=== PATIENT | male | born 1965 | race Caucasian/White ===

== ENCOUNTER → 2017-04-21 | Outpatient (CLI) | payer OTHER ==
--- NOTE | 2017-04-21 15:43 | XR ---
EXAMINATION TYPE: XR lumbosacral spine min 4V DATE OF EXAM: 04/21/2017 CLINICAL HISTORY: Chronic low back pain with new onset radiculopathy. TECHNIQUE: Frontal, lateral, and oblique images of the lumbar spine are obtained. COMPARISON: None FINDINGS: There are 5 lumbar type vertebral bodies identified. Intervertebral disc space narrowing is seen at L2-L3, L3-L4, L4-L5, and L5-S1. Small anterior osteophytes and facet arthropathy also are seen at these levels. At least mild neural foraminal narrowing is present at L3-L4 and L4-5 bilateral ly. The lumbar spine shows satisfactory alignment without evidence of acute fracture or dislocation. Vertebral body heights and disk space heights are within normal limits. No pars interarticularis defe cts. The overlying soft tissue appears unremarkable. IMPRESSION: 1. Multilevel degenerative disc disease with at least mild bilateral neural foraminal narrowing at L3 -L4 and L4-L5. 2. No acute fracture or dislocation is seen in the lumbar spine.
== END ==
LOC: RADXRMAIN 15:20
PROVIDERS: ATTEND Physician Assistant
DX: M99.73 Connective tissue and disc stenosis of intervertebral foramina of lumbar region (principal); M51.36 Other intervertebral disc degeneration, lumbar region
CPT/HCPCS: 72110

== ENCOUNTER → 2019-10-06 | Outpatient (CLI) | payer OTHER ==
--- NOTE | 2019-10-06 10:45 | XR ---
EXAMINATION TYPE: XR lumbosacral spine min 4V DATE OF EXAM: 10/06/2019 CLINICAL HISTORY: Acute on chronic low back pain with right foot numbness TECHNIQUE: Frontal, lateral, and oblique images of the lumbar spine are obtained. COMPARISON: 04/21/2017 FINDINGS: There is a very subtle levoscoliosis of the lumbar spine. There are 5 lumbar type vertebral bodies identified. The lumbar spine shows no evidence of acute fracture. Vertebral body heights are within normal limits. Multilevel intervertebral disc space narrowing, anterior osteophytes, endplate sclerosis, facet arthropathy, and vacuum disc disease. Very minimal retrolisthesis of L2 on L3 and L 3 on L4. The oblique images demonstrate no evidence of pars interarticularis defect. The overlying soft tissue appears unremarkable. IMPRESSION: 1. No acute fracture is seen in the lumbar spine. 2. Moderate multilevel degenerative disc disease of the lumbar spine with new minimal retrolisthesis of L2 on L3 and L3 on L4, likely on a degenerative basis. 3. Very subtle levoscoliosis of the lumbar spine.
== END | disposition home or self-care (01) ==
LOC: RADXRYALE 09:07
PROVIDERS: ATTEND Physician Assistant
DX: M43.16 Spondylolisthesis, lumbar region (principal); M51.36 Other intervertebral disc degeneration, lumbar region; M41.86 Other forms of scoliosis, lumbar region
CPT/HCPCS: 72110

== ENCOUNTER 2019-10-25 08:14 | Day surgery (SDC) | payer OTHER ==
[2019-10-20 14:34] VITALS: BMI 34.2
[~2019-10-25 08:14] MED LIST: DEXAMETHASONE SOD PHOSPHATE 10 MG/ML 1 ML VIAL IV ONE; LACTATED RINGERS 1,000 ML IV SCH; LIDOCAINE 1% 20 ML VIAL (10MG/ML) FOR IV START INTRADERMA PRN; MIDAZOLAM 2 MG/2 ML VIAL IV PRN; ONDANSETRON 4 MG/2 ML VIAL IVP ONE
[2019-10-25 08:40] VITALS: TEMP 97.8
[2019-10-25] MEDS ORDERED: PROPOFOL 10 MG/ML 20 ML VIAL IV ONE (08:50)
--- NOTE | 2019-10-25 09:19 | P.PCN ---
Date of Procedure: 10/25/19 Description of Procedure: BRIEF HISTORY: 54-year-old male who presents for colonoscopy for screening for malignant neoplasm colon. No prior colonoscopies, no change in bowel habits or blood per rectum. Family history of colon cancer in his mother in her 60s. PROCEDURE PERFORMED: Colonoscopy with polypectomy. PREOPERATIVE DIAGNOSIS: Screening for malignant neoplasm of the colon, no prior colonoscopies, family history of colon cancer in his mother. ESTIMATED BLOOD LOSS: Minimal. IV sedation per Anesthesia. PROCEDURE: After informed consent was obtained, the patient, was brought into the endoscopy unit. IV sedation was administered by Anesthesia under continuous monitoring. Digital rectal examination was normal. Initially the Olympus CF-190 flexible video colonoscope was then inserted in the rectum, gradually advanced into the cecum without any difficulty. Careful examination was performed as the scope was gradually being withdrawn. Ileocecal valve and the appendiceal orifice were visualized and appeared normal. Prep was excellent. Mucosa of the cecum, asce nding colon, transverse colon, descending colon, sigmoid colon, and rectum appeared normal. 2 diminutive rectal polyps measuring 1 and 2 mm in size removed with cold forcep polypectomy. Retroflexion was performed in the rectum and no lesions were seen. The patient tolerated the procedure well. IMPRESSION: 2 diminutive rectal polyps removed with cold forcep polypectomy. Normal-appearing colon from rectum to cecum. RECOMMENDATIONS: Findings of this examination were discussed with the patient in his . Okay to resume diet. Okay to resume medications. Await pathology from polypectomi es. Would recommend repeat colonoscopy in 5 years for family history of colon cancer..
[2019-10-25 09:34] VITALS: BP 104/66; PULSE 50; RESP 16
== END 2019-10-25 09:50 | disposition home or self-care (01) ==
LOC: ORWHC2ENDO 08:14
PROVIDERS: ATTEND Internal Medicine
DX: Z12.11 Encounter for screening for malignant neoplasm of colon (principal); K62.1 Rectal polyp; E78.5 Hyperlipidemia, unspecified; I10 Essential (primary) hypertension; Z88.0 Allergy status to penicillin; Z87.891 Personal history of nicotine dependence; Z79.899 Other long term (current) drug therapy; Z87.81 Personal history of (healed) traumatic fracture; Z98.890 Other specified postprocedural states; Z86.69 Personal history of other diseases of the nervous system and sense organs; Z80.0 Family history of malignant neoplasm of digestive organs
CPT/HCPCS: 88305; 45380; J2704

== ENCOUNTER → 2020-05-11 | Outpatient (CLI) | payer OTHER ==
--- NOTE | 2020-05-11 16:26 | XR ---
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 TECHNIQUE: 3 views FINDINGS: There is a nondistended maxillary molar. Dental amalgam is present. No retained metallic debris seen in either orbit. IMPRESSION: Dental amalgam. No retained metal debris within the orbits. Clear for MRI.
== END | disposition home or self-care (01) ==
LOC: RADXRYALE 15:09
PROVIDERS: ATTEND Physician Assistant Medical
DX: H02.819 Retained foreign body in unspecified eye, unspecified eyelid (principal); Z98.811 Dental restoration status
CPT/HCPCS: 70030

== ENCOUNTER → 2020-06-08 | Outpatient (CLI) | payer OTHER ==
--- NOTE | 2020-06-08 11:09 | XR ---
EXAMINATION TYPE: XR knee complete RT DATE OF EXAM: 06/08/2020 CLINICAL HISTORY: pain TECHNIQUE: Three views of the right knee are obtained. COMPARISON: None. FINDINGS: There is no acute fracture/dislocation. The tri-compartment joint spaces appear at least moderately narrowed. Spur formation is seen. The overlying soft tissue appears unremarkable. IMPRESSION: There is no acute fracture or dislocation.ICD 10 NO FRACTURE, INITIAL EVALUATION
== END | disposition home or self-care (01) ==
LOC: RADXRMAIN 10:35
PROVIDERS: ATTEND Emergency Medicine
DX: S83.91XA Sprain of unspecified site of right knee, initial encounter (principal)

== ENCOUNTER 2021-04-02 15:47 | Observation (INO) | payer OTHER ==
[2021-04-02 16:33] LABS: Basophils # (A) 0.1 k/uL (0-0.2); Basophils % (A) 1 %; Eosinophils # (A) 0.2 k/uL (0-0.7); Eosinophils % (A) 2 %; HCT 46.3 % (39.0-53.0); HGB 15.6 gm/dL (13.0-17.5); Lymphocytes # (A) 2.8 k/uL (1.0-4.8); Lymphocytes % (A) 34 %; MCHC 33.8 g/dL (31.0-37.0); MCV 88.8 fL (80.0-100.0); Mean Platelet Volume 8.2; Monocytes # (A) 0.6 k/uL (0-1.0); Monocytes % (A) 7 %; Neutrophils # (A) 4.4 k/uL (1.3-7.7); Neutrophils % (A) 53 %; Platelet Count 189 k/uL (150-450); RBC 5.22 m/uL (4.30-5.90); RDW 13.3 % (11.5-15.5); WBC 8.3 k/uL (3.8-10.6)
[2021-04-02 16:50] LABS: INR 0.9 (<1.2); Partial Thromboplastin Time 25.2 sec (22.0-30.0); Prothrombin Time 10.1 sec (9.0-12.0)
[2021-04-02 16:53] LABS: Albumin 4.4 g/dL (3.5-5.0); Calcium 9.5 mg/dL (8.4-10.2); Magnesium 1.9 mg/dL (1.6-2.3); Potassium 3.9 mmol/L (3.5-5.1); Total Bilirubin 0.2 mg/dL (0.2-1.3); Total Protein 6.8 g/dL (6.3-8.2)
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
--- NOTE | 2021-04-02 17:15 | XR ---
EXAMINATION TYPE: XR chest 2V DATE OF EXAM: 04/02/2021 COMPARISON: NONE HISTORY: Chest pain TECHNIQUE: 2 views FINDINGS: Heart and mediastinum are normal. Lungs are clear. Diaphragm is normal. Bony thorax is inta ct. IMPRESSION: Normal chest.
[2021-04-02] MEDS ORDERED: NITROGLYCERIN SL TABS 0.4 MG TAB SUBLINGUAL PRN (17:30)
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
[2021-04-03 08:22] VITALS: RESP 17
[2021-04-03] MEDS ORDERED: ATORVASTATIN 20 MG TAB PO SCH (09:00)
[2021-04-03] MEDS ORDERED: hydroCHLOROthiazide 12.5 MG CAP PO SCH (09:00)
[2021-04-03] MEDS ORDERED: amLODIPine 10 MG TAB PO SCH (09:00)
[2021-04-03] MEDS ORDERED: ASPIRIN 325 MG TAB PO SCH (09:00)
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
[2021-04-03 11:29] LABS: Chol/HDL Ratio 4.53; LDL Cholesterol,Calculated 60.6 mg/dL (0.0-131.0); VLDL Calculation 59.4 mg/dL (5.00-40.00)
--- NOTE | 2021-04-03 12:32 | ECHOF ---
Referral Reason:chest pain MEASUREMENTS -------- HEIGHT: 180.3 cm WEIGHT: 111.1 kg BP: 141/790 RVIDd: 3.4 cm (< 3.3) IVSd: 1.2 cm (0.6 - 1.1) LVIDd: 3.9 cm (3.9 - 5.3) LVPWd: 1.2 cm (0.6 - 1.1) IVSs: 1.6 cm LVIDs: 2.6 cm LVPWs: 1.6 cm LA Diam: 3.0 cm (2.7 - 3.8) LAESV Index (A-L): 22.24 ml/m Ao Diam: 3.4 cm (2.0 - 3.7) AV Cusp: 2.1 cm (1.5 - 2.6) MV EXCURSION: 13.189 mm (> 18.000) MV EF SLOPE: 135 mm/s (70 - 150) EPSS: 0.5 cm MV E John: 1.37 m/s MV DecT: 152 ms MV A John: 0.99 m/s MV E/A Ratio: 1.39 FINDINGS -------- Sinus rhythm. This was a technically adequate study. The left ventricular size is normal. There is borderline concentric left ventricular hypertrophy. Overall left ventricular systolic function is normal with, an EF between 60 - 65 %. The right ventricle is mildly enlarged. Normal LA size by volume 22+/-6 ml/m2. The right atrium is normal in size. Interatrial and interventricular septum intact. The aortic valve is trileaflet, and appears structurally normal. No aortic stenosis or regurgitation. The mitral valve is normal. The tricuspid valve appears structurally normal. Unable to estimate RVSP due to inadequate TR jet s pectral doppler profile. There is no pulmonic regurgitation present. The aortic root size is normal. Normal inferior vena cava with normal inspiratory collapse consistent with estimated right atrial pre ssure of 5 mmHg. There is no pericardial effusion. CONCLUSIONS -------- 1. The left ventricular size is normal. 2. There is borderline concentric left ventricular hypertrophy. 3. Overall left ventricular systolic function is normal with, an EF between 60 - 65 %. 4. The right ventricle is mildly enlarged. 5. The aortic valve is trileaflet, and appears structurally normal. No aortic stenosis or regurgitati on. 6. There is no pericardial effusion. TRUCK DRIVER TEAMSTER: Adilene Sung RDCS
[2021-04-03 15:29] VITALS: BP 134/72; PULSE 56; TEMP 97.6
--- NOTE | 2021-04-03 16:15 | ECHOS ---
STRESS ECHOCARDIOGRAM DATE OF STUDY: 04/03/2021 INDICATIONS: Chest pain BASELINE HEART RATE: 57 BASELINE BLOOD PRESSURE: 136/69 MAXIMUM HEART RATE: 136 MAXIMUM BLOOD PRESSURE: 174/65 85% MPHR: 141 100% MPHR: 166 METS: 8.1 MAXIMUM STAGE REACHED: III TOTAL EXERCISE TIME: 10:17 CLINICAL INFORMATION: Chest pain STRESS DATA: Heart rate is 54, pressure is 136/69 mmHg. Baseline EKG showed sinus mechanism. The patient exercised on the treadmill according to Manuel protocol for a total of 10 minutes and achieved 8.1 METS. Max heart rate was 136 which is about 82% of maximum predicted heart rate. Maximum blood pressure was 185/99 mmHg. Clinically, the patient developed shortness of breath at the peak of the heart rate. The EKG did not show any significant ST or T-wave abnormalities. The EKG showed [address]-segment depression and also the patient developed ventricular arrhythmia in the terms of couplets and nonsustained ventricular tachycardia. ANALYSIS: Echocardiogram images from parasternal long axis view, parasternal short axis view, apical 4 chambers and apical 2 chambers were obtained as the baseline images, at the peak of the heart rate as well as on recovery. The echocardiogram images showed good augmentation in the left ventricular systolic function without any evidence of wall motion abnormalities concerning for ischemia. CONCLUSION: 1. Excellent exercise tolerance. 2. Mild EKG changes in response to exercise with [address]-segment depression. 3. Ventricular arrhythmia in response to exercise the term of couplets and nonsustained ventricular tachycardia. 4. Overall normal echocardiogram in response to exercise without any evidence of wall motion abnormalities concerning for ischemia. MMODL / IJN: [id number] /
--- NOTE | 2021-04-04 09:45 | P.DS ---
Providers Date of admission: 04/02/21 17:31 Expected date of discharge: 04/03/21 Attending physician: Jammie Brock Consults: 04/02/21 17:30 Consult Physician Urgent Consulting Provider: [facility] Consult Reason/Comments: chest pain - high risk Do you want consulting provider notified?: Yes Primary care physician: Mo Danielson [facility] Course: Final diagnosis Atypical Chest pain. Ruled out ACS Hypertension Previous history of smoking and occasional marijuana use Hyperlipidemia DVT prophylaxis Discharge disposition Patient is being discharged in a stable condition with guarded prognosis to home. Patient will follow-up with Dr. Danielson in the outpatient setting upon discharge. Patient is to also follow-up with cardiology Dr. Cobb outpatient. Total time taken is greater than 35 minutes. Hospital course Patient is a 55-year-old male with a known history of hypertension, hyperlipidemia, previous history of smoking and marijuana use presents to ER with complaints of chest pain. Patient says that he has been having intermittent chest pain for the past 1 week. Patient felt like pressure in the middle of the chest lasting about 15 minutes. Yesterday at around 3:15 PM he started the table and started having midsternal chest pain radiating to the right pectoral muscle and to the right arm. Denied any radiation to the left arm or to the jaw area. No complaints of associated shortness of breath. No headache or dizziness or lightheadedness. No nausea vomiting or diaphoresis. Patient does use Naprosyn occasionally. No recent use. Patient was told he had a mild heart attack a few years ago and was recommended to follow-up with cardiology but he never was able to make an appointment. Next and chest x-ray showed normal chest. EKG sinus bradycardia heart rate 59 and incomplete right bundle branch block. Troponin 1 negative 04/03/2021 Patient was seen and evaluated in follow-up this morning and underwent stress test which showed excellent exercise tolerance with mild EKG changes and response to exercise with a ventricular arrhythmia and response to the exercise in terms of couplets and nonsustained ventricular tachycardia overall normal echocardiogram and response to exercise without any evidence of wall motion abnormalities concerning for ischemia with an EF of 60-65%. Patient was adamant about going home and stated if his stress test was abnormal then he would follow-up with cardiology sooner for outpatient cardiac catheterization. Cardiology aware of this and okay with outpatient follow-up. Patient instructed to follow-up with cardiology for results along with primary care provider upon discharge. Currently no reports of chest pain, shortness of breath, or palpitations. Patient is afebrile. No reports of nausea or vomiting and patient is tolerating diet. Patient will be discharged home today. On exam vital signs are stable. Cardio S1, S2 are muffled. Respiratory system shows diminished breath sounds at the bases with no wheezing or rhonchi noted. Abdomen is soft and obese, and nontender. Nervous system shows no focal deficits. Please refer to medication reconciliation sheet for a list of medications. Patient Condition at Discharge: Stable Plan - Discharge Summary New Discharge Prescriptions: New Aspirin 81 mg PO DAILY 30 Days #30 chewable Continue amLODIPine [Norvasc] 10 mg PO DAILY Atorvastatin [Lipitor] 20 mg PO DAILY hydroCHLOROthiazide [Hydrodiuril] 12.5 mg PO DAILY Naproxen 500 mg PO BID PRN PRN Reason: Pain Discharge Medication List Atorvastatin [Lipitor] 20 mg PO DAILY 10/20/19 [History] amLODIPine [Norvasc] 10 mg PO DAILY 10/20/19 [History] Naproxen 500 mg PO BID PRN 04/02/21 [History] hydroCHLOROthiazide [Hydrodiuril] 12.5 mg PO DAILY 04/02/21 [History] Aspirin 81 mg PO DAILY 30 Days #30 chewable 04/03/21 [Rx] Follow up Appointment(s)/Referral(s): Taiwo Cobb MD [STAFF PHYSICIAN] - 1 Week (Office will call you with appointment date and time) Mo Danielson DO [Primary Care Provider] - 1-2 days Activity/Diet/Wound Care/Special Instructions: Activity Limited until follow-up Follow-up with cardiology outpatient Follow-up with primary care provider upon discharge Take medications as prescribed Discharge Disposition: HOME SELF-CARE
== END 2021-04-03 16:43 | disposition home or self-care (01) ==
LOC: EC 15:47 → 6NMEDSUR 17:31
PROVIDERS: ADMIT Internal Medicine; ATTEND Internal Medicine
DX: R07.89 Other chest pain (principal); I10 Essential (primary) hypertension; E78.5 Hyperlipidemia, unspecified; I25.2 Old myocardial infarction; I45.10 Unspecified right bundle-branch block; R00.1 Bradycardia, unspecified; R51.9 Headache, unspecified; E66.9 Obesity, unspecified; Z68.34 Body mass index [BMI] 34.0-34.9, adult; F12.90 Cannabis use, unspecified, uncomplicated; I47.2 Ventricular tachycardia; Z79.899 Other long term (current) drug therapy; Z88.0 Allergy status to penicillin; Z86.14 Personal history of Methicillin resistant Staphylococcus aureus infection; Z87.828 Personal history of other (healed) physical injury and trauma; Z98.890 Other specified postprocedural states; Z87.891 Personal history of nicotine dependence; Z80.0 Family history of malignant neoplasm of digestive organs
CPT/HCPCS: 93005 ×2; 99285; 36415; 94760; 93306; 93351; 83880; 80061; 80053; 83690; 83735; 84484; 85025; 85610; 85730; 71046; G0378 ×2

== ENCOUNTER → 2021-09-20 | Outpatient (CLI) | payer OTHER ==
--- NOTE | 2021-09-20 15:19 | XR ---
EXAMINATION TYPE: XR shoulder complete RT, 3 views DATE OF EXAM: 09/20/2021 Comparison: None Clinical History: 56-year-old male [id number] RT SHLD PAIN Findings: Subacromial space is preserved. No tendinous or bursal calcifications. AC joint appears congruent. No acute fracture, subluxation, dislocation. Slightly overpenetrated exam. Impression: No acute osseous abnormality seen. If symptoms persist, consider MRI.
== END | disposition home or self-care (01) ==
LOC: RADXRYALE 13:28
PROVIDERS: ATTEND Physician Assistant
DX: M25.511 Pain in right shoulder (principal)

== ENCOUNTER → 2022-01-31 | Outpatient (CLI) | payer OTHER ==
--- NOTE | 2022-01-31 10:32 | XR ---
EXAMINATION TYPE: XR chest 2V DATE OF EXAM: 01/31/2022 COMPARISON: 04/02/2021 INDICATION: Short of breath TECHNIQUE: Frontal and lateral views of the chest are obtained. FINDINGS: The heart size is normal. The pulmonary vasculature is normal. The lungs are clear. IMPRESSION: 1. No acute pulmonary process.
== END | disposition home or self-care (01) ==
LOC: RADXRYALE 09:08
PROVIDERS: ATTEND Physician Assistant
DX: R06.02 Shortness of breath (principal)
CPT/HCPCS: 71046

== ENCOUNTER → 2022-07-02 | Outpatient (CLI) | payer OTHER ==
--- NOTE | 2022-07-02 11:07 | XR ---
EXAMINATION TYPE: XR chest 2V DATE OF EXAM: 07/02/2022 10:28 AM COMPARISON: Chest radiographs from 01/31/2022. TECHNIQUE: XR chest 2V Frontal and lateral views of the chest. CLINICAL INDICATION:Male, 57 years old with history of R0602,J209 SOB,BRONCHITIS; FINDINGS: Lungs/Pleura: There is no evidence of pleural effusion, focal consolidation, or pneumothorax. Pulmonary vascularity: Unremarkable. Heart/mediastinum: Cardiomediastinal silhouette is unremarkable. Musculoskeletal: No acute osseous pathology. Degenerative changes of the spine. IMPRESSION: No acute cardiopulmonary disease/process. No significant change from prior examination.
== END | disposition home or self-care (01) ==
LOC: RADXRYALE 09:10
PROVIDERS: ATTEND Physician Assistant Medical
DX: J20.9 Acute bronchitis, unspecified (principal)
CPT/HCPCS: 71046

== ENCOUNTER → 2023-03-05 | Outpatient (CLI) | payer OTHER ==
--- NOTE | 2023-03-05 12:11 | CT ---
EXAMINATION TYPE: CT right knee - [facility] Protocol CT DLP: 681 mGycm, Automated exposure control for dose reduction was used. DATE OF EXAM: 03/05/2023 11:55 AM COMPARISON: Right knee radiograph 06/08/2020 CLINICAL INDICATION:Male, 57 years old with history of M17.11 UNILATERAL PRIMARY OSTEOARTHRITIS, RIGH T KN; PHH, pre-op right total knee TECHNIQUE: Scanning of the right knee without IV contrast. Coronal and sagittal reconstructions perfo rmed. Imaging for surgical planning purposes. Imaging included both hips and ankles as well. FINDINGS: There is no evidence of fracture, subluxation, or dislocation. Small right knee joint effus ion. Tricompartmental osteoarthritic changes of the right knee with joint space narrowing and margina l spurring. Inferior and superior patellar spurring noted. Incidental fabella. No focal muscular atro phy or edema is identified. No radiopaque foreign body identified. Bilateral fat filled inguinal hernias. IMPRESSION: Imaging for surgical planning purposes. Advanced tricompartmental osteoarthritic changes of the right knee. Small right knee joint effusion.
== END | disposition home or self-care (01) ==
LOC: RADCTMAIN 10:30
PROVIDERS: ATTEND Orthopaedic Surgery
DX: M17.11 Unilateral primary osteoarthritis, right knee (principal); M25.461 Effusion, right knee

== ENCOUNTER → 2023-03-15 | Outpatient (CLI) | payer OTHER ==
[2023-03-15 09:04] LABS: Appearance,Urine Clear (Clear); Bilirubin,Urine Negative (Negative); Blood,Urine Negative (Negative); Color,Urine Yellow; Glucose,Urine (UA) Negative (Negative); Ketones,Urine Negative (Negative); Leukocyte Esterase,Urine Negative (Negative); Nitrite,Urine Negative (Negative); PH, Urine 5.5 (5.0-8.0); Protein,Urine Trace (Negative); Specific Gravity,Urine 1.024 (1.001-1.035); Urobilinogen,Urine <2.0 mg/dL (<2.0)
[2023-03-15 09:20] LABS: Partial Thromboplastin Time 26.6 sec (22.0-30.0); Prothrombin Time 10.5 sec (9.0-12.0)
[2023-03-15 23:14] LABS: HCT 47.1 % (39.6-50.0); HGB 15.9 d/dL (12.0-15.0); MCH 30.1 pg (27.0-32.0); MCHC 33.8 d/dL (32.0-37.0); NRBC Per 100 WBC 0 X 10*3/uL (0.00-0.01); Platelet Count 196 X 10*3/uL (140-440); RBC 5.29 X 10*6/uL (4.40-5.60); RDW 13.2 % (11.5-14.5); WBC 7.68 X 10*3/uL (4.50-10.00)
[2023-03-16 07:30] LABS: ALT 54 U/L (10-49); AST 25 U/L (14-35); Albumin 4.5 d/dL (3.8-4.9); Albumin/Globulin Ratio 2.05 Ratio (1.60-3.17); Alkaline Phosphatase 71 U/L (41-126); BUN/Creat Ratio 18.55 Ratio (12.00-20.00); Blood Urea Nitrogen 20.4 mg/dL (9.0-27.0); Calcium 9.7 mg/dL (8.7-10.3); Carbon Dioxide 26.1 mmol/L (21.6-31.8); Chloride 104 mmol/L (96-109); Globulin 2.2 d/dL (1.6-3.3); Glucose 119 mg/dL (70-110); Potassium 4.3 mmol/L (3.5-5.5); Sodium 141 mmol/L (135-145); Total Bilirubin 0.4 mg/dL (0.3-1.2); Total Protein 6.7 d/dL (6.2-8.2)
== END | disposition home or self-care (01) ==
LOC: LABPAT 08:05
PROVIDERS: ATTEND Orthopaedic Surgery
DX: Z01.812 Encounter for preprocedural laboratory examination (principal); M17.11 Unilateral primary osteoarthritis, right knee
CPT/HCPCS: 80053; 81003; 85027; 85610; 85730; 87070

== ENCOUNTER 2023-03-31 10:52 | Observation (INO) | payer OTHER ==
[~2023-03-31 10:52] MED LIST changes: +ACETAMINOPHEN TAB 500 MG TAB PO PRN; -DEXAMETHASONE SOD PHOSPHATE 10 MG/ML 1 ML VIAL IV ONE; +DEXAMETHASONE SOD PHOSPHATE 4 MG/ML 1 ML VIAL IV ONE; +HYDROmorphone 0.5 MG/0.5 ML SYRINGE IVP PRN; -LACTATED RINGERS 1,000 ML IV SCH; -LIDOCAINE 1% 20 ML VIAL (10MG/ML) FOR IV START INTRADERMA PRN; +MELOXICAM 7.5 MG TAB PO PRN; -MIDAZOLAM 2 MG/2 ML VIAL IV PRN; +ONDANSETRON 4 MG/2 ML VIAL IVP PRN; +ROPIVACAINE/EPI/CLONIDINE/KET 50 ML SYRINGE MISCELLANE PRN; +TRANEXAMIC 1,000 MG/100ML-NACL 1,000 MG in SALINE 1 100ML.BAG IVPB PRN
[2023-03-31] MEDS: LACTATED RINGERS 1,000 ML IV SCH ×2 (11:10→17:47)
[2023-03-31] MEDS ORDERED: MIDAZOLAM 2 MG/2 ML VIAL IVP ONE (11:57)
[2023-03-31] MEDS ORDERED: SODIUM CHLORIDE 0.9% (PF) 10 ML VIAL ONE (12:56)
[2023-03-31] MEDS ORDERED: HYDROmorphone (PF) 1 MG/ML ONE (12:56)
[2023-03-31] MEDS ORDERED: fentaNYL (PF) 50 MCG/ML 2 ML AMP ONE (12:56)
[2023-03-31] MEDS ORDERED: LIDOCAINE 2% INJ 20 MG/ML (2 ML VIAL) ONE (12:56)
[2023-03-31] MEDS ORDERED: SUCCINYLCHOLINE CHLORIDE 200 MG/10 ML VIAL IV ONE (12:56)
[2023-03-31] MEDS ORDERED: PROPOFOL 10 MG/ML 20 ML VIAL IV ONE (12:56)
[2023-03-31] MEDS ORDERED: TRANEXAMIC 1,000 MG/100ML-NACL PREMIX BAG ONE (12:56)
[2023-03-31] MEDS ORDERED: ROPIVACAINE 5 MG/ML 30 ML VIAL ONE (12:56)
[2023-03-31] MEDS ORDERED: ROCURONIUM 10 MG/ML (5 ML VIAL) IV ONE (12:56)
[2023-03-31] MEDS ORDERED: ceFAZolin 1,000 MG in SODIUM CHLORIDE 0.9% 1,000 ML IRRIGATION ONE (13:52)
[2023-03-31] MEDS ORDERED: LACTATED RINGERS 1,000 ML IV ONE (14:53)
--- NOTE | 2023-03-31 15:21 | P.OP ---
Date of Procedure: 03/31/23 Procedure(s) Performed: PREOPERATIVE DIAGNOSIS: Right knee severe osteoarthritis genu varum POSTOPERATIVE DIAGNOSIS: Right knee severe osteoarthritis with genu varum OPERATION: Right knee cemented total replacement arthroplasty, robotic-assisted using Gaudencio system from [employer]. ANESTHESIA: Regional with IPAC and ACB, General ESTIMATED BLOOD LOSS: 150 ml. CORRECTIONAL COOK: Kami Fraga PA-C (assistance with: patient positioning, retraction, exposure, hemostasis, leg positioning, implantation, irrigation, closure, dressing) COMPLICATIONS: None apparent. COMPONENTS IMPLANTED: Triathlon components INDICATIONS: Mr. Rodriguez is a 57 year old male with a history of right knee osteoarthritis. The patient's knee is end-stage, and conservative management has failed. The operation of knee replacement has been discussed at length in the office, as well as potential risks and complications. These are inclusive of, but not limited to: bleeding, infection, scarring, discomfort, blood vessel and nerve damage, need for further surgery, failure to relieve symptoms, persistence, recurrence, or worsening of problems, loosening, dislocation, wear, blood clot, pulmonary embolism, , gait dysfunction, stiffness, and other risks as discussed in the office. The patient elects to proceed and the consent form has been signed. PROCEDURE: The patient was taken to the operating room and positioned on the operating room table in the supine position. Anesthesia was initiated. Care was taken to make sure that all pressure points were adequately padded. The operative lower extremity was prepped and draped in the usual aseptic fashion using ChloraPrep. Ioban drape was used for the case and the patient received intravenous antibiotics within one hour of the incision. A pneumotourniquet and leg post were used for the case. The limb was exsanguinated with an Esmarch bandage and the tourniquet was inflated to 275 mmHg. Time-out was called confirming the patient's identity, side, procedure and administration of antibiotics and tranexamic acid. The incision was then created midline directly over the knee, carried down through skin and into the subcutaneous tissues and down to fascia. Full thickness subcutaneous medial flap was developed. Medial parapatellar arthrotomy was performed and the interior of the knee was inspected. There was end-stage osteoarthritis of the knee with a [mild to moderate] genu varum type deformity. The fat pad was excised and proximal medial release on the tibia was completed using meticulous dissection and a curved osteotome. Note was made of significant attrition of the anterior and significant degenerative appearance of the cruciate ligaments. The anterior cruciate ligament as well as the posterior cruciate ligament were taken down. The exposure was excellent. The knee was flexed 90 degrees and the patella was everted. 4 mm pins were placed in the medial epicondylectomy the femur and an optical array was attached for the Gaudencio system. Similarly, another array was placed within the wound using 4 mm pins at the level of the tibial tubercle. The arrays were tightened and confirmed to be in good position based on the position of the camera. Hip center was taken, followed by double checking the femoral and tibial checkpoints prior to registering the femur and tibia respectively. Once an accurate register was accomplished, spurs were removed around the knee and any necessary soft tissue releases were performed. The knee was taken through range of motion with stress medially and laterally in extension. Once these spatial measurements were taken, osteophytes were removed from around the knee, and the deep medial collateral ligament was carefully released in increments until a satisfactory tension was obtained. Stress under camera evaluation was performed using curved osteotomes in the medial and lateral compartments with the knee at 90 of flexion. Pre-resection ligament balancing was further performed as necessary. The extension and flexion spaces were then balanced according to these spatial measurements, by rotating and translating the planned femoral and tibial components in the coronal, sagittal, and axial planes until a satisfactory balance was obtained. Once the gap balancing adjustments were performed on the computer, the robotic arm on the Gaudencio robot was used to create the tibial and femoral cuts. These cuts were performed without incident, and the cut fragments were then removed. Surfaces were further smoothed peripherally if necessary. Medial and lateral menisci were removed at this time, then the posterior capsule was cauterized and any residual loose soft tissue within the lateral posterior and medial aspects of the interior of the knee were removed. Patellar resurfacing was performed using a reamer. The size of the required patellar component was estimated and the patellar surface was then reamed down to a residual thickness which would recreate the lovelock thickness with the component. This patient had a fairly shallow The exact placement of the patellar component was adjusted for position based on preoperative x-rays and intraoperative findings. Trial components were then placed and the tibial component was allowed to self center, with care not to allow any significant internal rotation of the component. The position of this tibial trial was then marked and confirmed to be very close to the standard landmark of the junction between the middle and medial 1/3 of the tibial tubercle. Confirmation of satisfactory soft tissue balance was confirmed based on the readings of the extension and flexion spaces and by kinematic testing of the knee manually. The latter showed excellent stability both medially and laterally, excellent alignment in the coronal plane, as well as excellent stability anteriorly and posteriorly with regard to tibial translation. There was no evidence of mid flexion instability. Trial components were removed and the cut surfaces of the bone were pulse lavaged thoroughly and dried. We planned for a CS liner and the tibia was prepared for a standard stemmed tibial Triathlon component. Cement was mixed on the back table and applied to the final components. Cement was then applied to the tibial surface and pressurized into the surface using finger pressurization technique. The tibial component was then applied and excess cement was removed after it was impacted securely and noted to be flush with the cut surface. In similar fashion, the cement was applied to the cut femoral surface, pressurized in using finger pressurization and the component was impacted into place. Excess cement was removed. The polyethylene spacer was then implanted and locked into position. The patellar component was then applied in similar technique and a patellar clamp was used to hold the patella in place as the cement hardened. Once the cement had fully hardened, the knee was reinspected. Any other cement extrusion was removed and final kinematic testing showed range of motion from 0 to 130 degrees with excellent stability, both medially and laterally and appropriate alignment of the leg. Patellar tracking was excellent. The knee was then thoroughly pulse lavaged with normal saline. The tourniquet was deflated and hemostasis was obtained with electrocautery and IV tranexamic acid, 1 g given at the start of the operation and 1 g at the start of closure. Closure was with interrupted #2 PDS sutures in the fascia/capsule and suppleme nted with #2 Quill, 2-0 Vicryl suture was used for the subcutaneous tissues and 4-0 Quill for the skin. Cyanoacrylate and Optefoam were then applied. A lightly compressive dressing was applied using Webril and an Willard wrap. The patient was then transferred to stretcher and taken to the recovery room in stable condition. Sponge and needle counts were correct.
[2023-03-31] MEDS ORDERED: ROPIVACAINE 1,100 MG, SODIUM CHLORIDE 0.9% 500 ML 330 ML, EMPTY PAIN BALL 1 EACH MISCELLANE PRN ×4 (16:20→16:27)
--- NOTE | 2023-03-31 16:27 | P.ANPRN ---
Procedure Note - Anesthesia - Nerve Block Performed Right Adductor Canal Infusion Time Out Performed: Yes ([id number]) Date of Procedure: 03/31/23 Location of Patient: PreOp Indication: Acute Post-Operative Pain, Dx/Pain Location (Right knee), Requested by Surgeon Specifically requested for management of pain by Dr.: Samir Morley Sedation Type: Sedate with meaningful contact maintained Preparation: Sterile Prep, Sterile Dressing Position: Supine Catheter: Indwelling Needle Types: Pajunk Needle Gauge: 18 Ultrasound used to visualize needle placement: Yes Ultrasound used to observe medication spread: Yes Injectate: 0.5% Ropivacaine (see comment for volume) (20 mL +10 mL of normal saline) Blood Aspirated: No Pain Paresthesia on Injection Noted: No Resistance on Injection: Normal Image Stored and Saved: Yes Events: Uneventful and Well Tolerated Right iPack Single Time Out Performed: Yes Date of Procedure: 03/31/23 Location of Patient: PreOp Indication: Acute Post-Operative Pain, Dx/Pain Location (Right knee), Requested by Surgeon Specifically requested for management of pain by DrDarline: Samir Morley Sedation Type: Sedate with meaningful contact maintained Position: Left Lateral Catheter: None Needle Types: Pajunk Needle Gauge: 21 Ultrasound used to visualize needle placement: Yes Ultrasound used to observe medication spread: Yes Injectate: 0.5% Ropivacaine (see comment for volume) (20 mL +10 mL of normal saline) Blood Aspirated: No Pain Paresthesia on Injection Noted: No Resistance on Injection: Normal Image Stored and Saved: Yes Events: Uneventful and Well Tolerated
--- NOTE | 2023-03-31 16:39 | XR ---
EXAMINATION TYPE: XR knee limited RT DATE OF EXAM: 03/31/2023 4:36 PM INDICATION: Patient age:Male; 57 years old; Reason for study: Post op TKA; COMPARISON: None. TECHNIQUE: The Right knee(s) was examined in Frontal, lateral and oblique projections. FINDINGS: Status post total knee arthroplasty changes with hardware in appropriate alignment and in tact. No evidence of fracture. Subcutaneous lucencies and lucencies within the joint consistent with surgical changes. IMPRESSION: Status post total knee arthroplasty changes with hardware intact and appropriate alignment. No fractu res identified.
[2023-03-31] MEDS ORDERED: NALOXONE 0.4 MG/ML 1 ML VIAL IV PRN (17:14)
[2023-03-31] MEDS ORDERED: NA PHOS,M-B/NA PHOS,DI-BA 133 ML ENEMA RECTAL PRN (17:14)
[2023-03-31] MEDS ORDERED: bisacodyL 10 MG SUPP RECTAL PRN (17:14)
[2023-03-31] MEDS ORDERED: ONDANSETRON 4 MG/2 ML VIAL IVP PRN (17:14)
[2023-03-31] MEDS ORDERED: diazePAM 5 MG TAB PO PRN (17:14)
[2023-03-31] MEDS ORDERED: HYDROmorphone 0.5 MG/0.5 ML SYRINGE IVP PRN ×2 (17:14)
[2023-03-31] MEDS ORDERED: TEMAZEPAM 15 MG CAP PO PRN (17:14)
[2023-03-31] MEDS ORDERED: MAGNESIUM HYDROXIDE 2,400 MG/30 ML CUP PO PRN (17:14)
[2023-03-31] MEDS: ASPIRIN 81 MG PO SCH (20:44)
[2023-03-31] MEDS: HYDROmorphone 1 MG/ML 1 ML SYRINGE IVP PRN (20:44)
[2023-03-31] MEDS ORDERED: SENNOSIDES-DOCUSATE SODIUM 1 EACH TAB PO SCH (21:00)
[2023-03-31] MEDS: HYDROcodone/APAP 7.5-325MG 1 EACH TAB PO PRN (22:20)
[2023-04-01] MEDS: HYDROmorphone 1 MG/ML 1 ML SYRINGE IVP PRN (01:37)
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
[2023-04-01] MEDS ORDERED: cloNIDine HCL 0.2 MG TAB PO PRN (03:09)
[2023-04-01] MEDS: HYDROcodone/APAP 7.5-325MG 1 EACH TAB PO PRN ×3 (03:10→13:27)
[2023-04-01] MEDS: LACTATED RINGERS 1,000 ML IV SCH ×2 (06:57→11:22)
--- NOTE | 2023-04-01 07:49 | P.PN ---
Progress Note - Text Progress Note Date: 04/01/23 Postoperative day # 1 status post total knee arthroplasty, on adductor canal perineural catheter placed for postoperative analgesia. Ropivacaine 0.2% 8 mL per hour through ON-Q pump continuous infusion. Pain is well controlled. On visual analog scale 5/10 Patient is taking PRN oral pain medications. Catheter site: Looks Ok. There is no erythema or tenderness. Continue with the current pain management plan and will follow.
[2023-04-01 08:14] VITALS: RESP 18; TEMP 98.4
[2023-04-01] MEDS: ASPIRIN 81 MG PO SCH (08:59)
[2023-04-01] MEDS ORDERED: amLODIPine 10 MG TAB PO SCH (09:00)
[2023-04-01] MEDS ORDERED: MELOXICAM 7.5 MG TAB PO SCH (09:00)
[2023-04-01] MEDS ORDERED: hydroCHLOROthiazide 12.5 MG CAP PO SCH (09:00)
--- NOTE | 2023-04-01 09:11 | P.DS ---
Providers Expected date of discharge: 04/01/23 Attending physician: Samir Morley Consults: 03/31/23 17:19 Consult Physician Routine Consulting Provider: Shahana Smith Consult Reason/Comments: Medical management Do you want consulting provider notified?: Yes Primary care physician: Mo Danielson - Discharge Diagnosis(es) (1) Osteoarthritis of right knee Current Visit: Yes Status: Acute (2) Status post total right knee replacement Current Visit: Yes Status: Acute Hospital Course: This is a 57-year-old male with known history of degenerative arthritis of the right knee. The patient presented for evaluation as an outpatient. After discussion and consideration patient elects to proceed with total knee arthroplasty. The patient is seen preoperatively by Dr. Willingham and medically cleared for surgery by their primary care physician. Patient is admitted to [facility] on 03/31/2023 for total knee arthroplasty. The procedure is performed without complication or sequelae. The patient is doing well postoperatively. Labs and vital signs are stable on day of discharge. On day of discharge patient's knee incision is healing well. There is minimal erythema. There is no drainage noted at this time. There is minimal soft ti ssue swelling to the knee. Patient has full foot and ankle motion without difficulty or pain. Calf is soft and nontender to palpation. Neurovascular status to the right lower extremity is intact. Patient is discharged home in good condition. Please see med rec for accurate list of home medications. Plan - Discharge Summary Discharge Rx Participant: No New Discharge Prescriptions: New HYDROcodone/APAP 7.5-325MG [[place] 7.5-325] 1 - 2 tab PO Q6HR PRN #32 tab PRN Reason: Pain Sennosides-Docusate Sodium [Senokot-S] 1 tab PO BID #60 tablet Aspirin [Adult Low Dose Aspirin EC] 81 mg PO BID #1 tab Ondansetron Odt [Zofran Odt] 4 mg PO Q8HR PRN #14 tab PRN Reason: Nausea No Action amLODIPine [Norvasc] 10 mg PO DAILY hydroCHLOROthiazide [Hydrodiuril] 12.5 mg PO DAILY Meloxicam [Mobic] 7.5 mg PO DAILY Discharge Medication List amLODIPine [Norvasc] 10 mg PO DAILY 10/20/19 [History] hydroCHLOROthiazide [Hydrodiuril] 12.5 mg PO DAILY 04/02/21 [History] Meloxicam [Mobic] 7.5 mg PO DAILY 03/25/23 [History] Aspirin [Adult Low Dose Aspirin EC] 81 mg PO BID #1 tab 03/31/23 [Rx] HYDROcodone/APAP 7.5-325MG [[place] 7.5-325] 1 - 2 tab PO Q6HR PRN #32 tab 03/31/23 [Rx] Ondansetron Odt [Zofran Odt] 4 mg PO Q8HR PRN #14 tab 03/31/23 [Rx] Sennosides-Docusate Sodium [Senokot-S] 1 tab PO BID #60 tablet 03/31/23 [Rx] Follow up Appointment(s)/Referral(s): Kami Fraga, PAC [PHYSICIAN ROUND CORNER CUTTER OPERATOR] - 2 Weeks Activity/Diet/Wound Care/Special Instructions: May bear wt as tolerated w walker. Keep optifoam dressing intact 7 days. May remove senait wrap and stocking 48h post op. May shower 48h post op. Discharge Disposition: HOME SELF-CARE
[2023-04-01 09:42] VITALS: BP 134/75; PULSE 60
[2023-04-01 11:11] LABS: HCT 43.2 % (39.6-50.0); HGB 14.4 d/dL (13.0-17.0); MCH 29.7 pg (27.0-32.0); MCHC 33.3 d/dL (32.0-37.0); MCV 89.1 FL (80.0-97.0); Mean Platelet Volume 10.7 FL (9.5-12.2); NRBC Per 100 WBC 0 X 10*3/uL (0.00-0.01); Platelet Count 197 X 10*3/uL (140-440); RBC 4.85 X 10*6/uL (4.40-5.60); RDW 13.5 % (11.5-14.5); WBC 16.43 X 10*3/uL (4.50-10.00)
[2023-04-01 11:20] LABS: BUN/Creat Ratio 14.64 Ratio (12.00-20.00); Blood Urea Nitrogen 16.1 mg/dL (9.0-27.0); Calcium 9.2 mg/dL (8.7-10.3); Carbon Dioxide 26.2 mmol/L (21.6-31.8); Chloride 102 mmol/L (96-109); Glucose 150 mg/dL (70-110); Potassium 4.5 mmol/L (3.5-5.5); Sodium 139 mmol/L (135-145)
[2023-04-01 11:52] LABS: Basophils # (A) 0.04 X 10*3/uL (0.00-0.10); Basophils % (A) 0.2 %; Eosinophils # (A) 0.33 X 10*3/uL (0.04-0.35); Lymphocytes % (A) 14.6 %; Monocytes # (A) 1.68 X 10*3/uL (0.20-1.00); Monocytes % (A) 10.2 %; Neutrophils # (A) 11.89 X 10*3/uL (1.80-7.70); Neutrophils % (A) 72.5 %; RBC Morphology Normal (Normal)
--- NOTE | 2023-04-01 12:29 | P.PN ---
Subjective Progress Note Date: 04/01/23 No new complaints. Pt doing well. Medically cleared for discharge. Gen: awake, alert HEENT: normocephalic, atraumatic, good hearing acuity, moist mucous membranes Resp: good air exchange, breathing comfortably with no accessory muscle use CVS: good distal perfusion x 4, GI: soft, NTTP, ND : no SPT, no CVAT, santamaria catheter not present MSK: no pitting edema, no clubbing Neuro: non-focal, moving all extremities Psych: cooperative, euthymic mood Assessment/plan: right total knee arthroplasty POD zero pain control , DVT PPX per primary ortho team hypertension , controlled resume amlodipine 10 mg po daily and hydrochlorothiazide 12.5 mg po daily check CBC and BMP in AM stable from medical stand point thank you for this consultation Objective - Vital Signs Vital signs: Vital Signs Temp 98.4 F 04/01/23 07:46 Pulse 60 04/01/23 09:42 Resp 18 04/01/23 07:46 BP 134/75 04/01/23 09:42 Pulse Ox 96 04/01/23 07:46 FiO2 Intake & Output 03/31/23 04/01/23 04/01/23 18:59 06:59 18:59 Intake Total 1601 Output Total 250 400 Balance 1351 -400 Weight 115.8 kg Intake: IV 1601 Output: Urine 100 400 Estimated Blood Loss 150 Other: Voiding Method Urinal # Voids 3 - Labs CBC & Chem 7: 04/01/23 06:19 04/01/23 06:19 Labs: Abnormal Lab Results - Last 24 Hours (Table) 04/01/23 04/01/23 Range/Units 06:19 06:19 WBC 16.43 H (4.50-10.00) X 10*3/uL Neutrophils # 11.89 H (1.80-7.70) X 10*3/uL Monocytes # 1.68 H (0.20-1.00) X 10*3/uL Glucose 150 H (70-110) mg/dL
== END 2023-04-01 13:40 | disposition home or self-care (01) ==
LOC: OR 10:52 → 4SSUR 16:58 → OR 04-01 09:03 → 4SSUR 04-01 09:03
PROVIDERS: ADMIT Orthopaedic Surgery; ATTEND Orthopaedic Surgery
DX: M17.11 Unilateral primary osteoarthritis, right knee (principal); M21.161 Varus deformity, not elsewhere classified, right knee; I10 Essential (primary) hypertension; E78.5 Hyperlipidemia, unspecified; G47.33 Obstructive sleep apnea (adult) (pediatric); I25.2 Old myocardial infarction; R73.03 Prediabetes; E29.0 Testicular hyperfunction; G89.29 Other chronic pain; M54.9 Dorsalgia, unspecified; Z79.1 Long term (current) use of non-steroidal anti-inflammatories (NSAID); Z79.899 Other long term (current) drug therapy; Z88.0 Allergy status to penicillin; Z88.8 Allergy status to other drugs, medicaments and biological substances; Z86.14 Personal history of Methicillin resistant Staphylococcus aureus infection; Z87.891 Personal history of nicotine dependence; Z87.828 Personal history of other (healed) physical injury and trauma; Z98.890 Other specified postprocedural states; Z80.0 Family history of malignant neoplasm of digestive organs
CPT/HCPCS: 27447; S2900; 64448; 64999; 80048; 85025; 94660

== ENCOUNTER 2023-04-06 15:02 | Emergency (ER) | payer OTHER ==
[2023-04-06 15:13] VITALS: RESP 18; TEMP 97.8
[2023-04-06] MEDS ORDERED: HYDROmorphone 0.5 MG/0.5 ML SYRINGE IVP STA (15:37)
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
[2023-04-06 16:09] LABS: Basophils # (A) 0.1 k/uL (0-0.2); Basophils % (A) 1 %; Eosinophils # (A) 0.2 k/uL (0-0.7); Eosinophils % (A) 2 %; HCT 40.2 % (39.0-53.0); Lymphocytes # (A) 2.4 k/uL (1.0-4.8); Lymphocytes % (A) 28 %; MCH 30.7 pg (25.0-35.0); MCHC 34.7 g/dL (31.0-37.0); MCV 88.4 fL (80.0-100.0); Mean Platelet Volume 8.5; Monocytes # (A) 0.8 k/uL (0-1.0); Monocytes % (A) 9 %; Neutrophils # (A) 5.3 k/uL (1.3-7.7); Neutrophils % (A) 60 %; Platelet Count 234 k/uL (150-450); RBC 4.55 m/uL (4.30-5.90); RDW 13.2 % (11.5-15.5); WBC 8.8 k/uL (3.8-10.6)
[2023-04-06 16:22] LABS: INR 0.9 (<1.2); Partial Thromboplastin Time 25.7 sec (22.0-30.0); Prothrombin Time 10.1 sec (9.0-12.0)
[2023-04-06 16:45] LABS: ALT 100 U/L (4-49); AST 64 U/L (17-59); African American GFR (CKD) >90 (>60 ml/min/1.73 sqM); Alkaline Phosphatase 82 U/L (38-126); Anion Gap 8 mmol/L; Blood Urea Nitrogen 21 mg/dL (9-20); C Reactive Protein 4.5 mg/dL (<1.0); Calcium 8.8 mg/dL (8.4-10.2); Carbon Dioxide 26 mmol/L (22-30); Chloride 104 mmol/L (98-107); Glucose 131 mg/dL (74-99); Non-African American GFR(CKD) >90 (>60 ml/min/1.73 sqM); Potassium 4.2 mmol/L (3.5-5.1); Sodium 138 mmol/L (137-145); Total Bilirubin 0.8 mg/dL (0.2-1.3); Total Protein 7.1 g/dL (6.3-8.2)
[2023-04-06 17:20] LABS: Erythrocyte Sedimentation Rate 76 mm/hr (0-15)
[2023-04-06 19:36] VITALS: BP 129/90; PULSE 60
== END 2023-04-06 19:37 | disposition home or self-care (01) ==
LOC: EC 15:02
DX: G89.18 Other acute postprocedural pain (principal); Z96.651 Presence of right artificial knee joint; R70.0 Elevated erythrocyte sedimentation rate; R79.82 Elevated C-reactive protein (CRP); I10 Essential (primary) hypertension; I25.2 Old myocardial infarction; F12.90 Cannabis use, unspecified, uncomplicated; Z88.8 Allergy status to other drugs, medicaments and biological substances; Z88.0 Allergy status to penicillin; Z87.891 Personal history of nicotine dependence
CPT/HCPCS: 36415; 93005; 80053; 85652; 85025; 85610; 85730; 86140; 99284; 96374; J1170

== ENCOUNTER → 2023-09-10 | Outpatient (CLI) | payer OTHER ==
--- NOTE | 2023-09-10 13:08 | XR ---
EXAMINATION TYPE: XR lumbosacral spine min 4V DATE OF EXAM: 09/10/2023 11:06 AM CLINICAL INDICATION:Male, 58 years old with history of [id number] SPOND LSP, IDD LSP; [facility] COMPARISON: 10/06/2009. TECHNIQUE: XR lumbosacral spine min 4V - Frontal, lateral , bilateral oblique and coned in L5-S1 late ral views of the spine. FINDINGS: No evidence of any acute osseous pathology. No evidence of loss of vertebral body height i s seen. There is normal alignment of the lumbar vertebral bodies. Scattered disc space narrowing. Mul tilevel marginal osteophyte formation throughout the visualized spine. There is facet joint arthropat hy throughout the spine. Scattered at least mild neural foraminal stenosis. No foraminal stenosis wor se at L4-L5 and L5-S1. IMPRESSION: 1. No acute fracture. 2. Moderate to severe multilevel disc degeneration with neural foraminal stenosis worse in the lower lumbar spine.
== END | disposition home or self-care (01) ==
LOC: RADXRYALE 10:25
PROVIDERS: ATTEND Neurological Surgery
DX: M47.26 Other spondylosis with radiculopathy, lumbar region (principal); M51.16 Intervertebral disc disorders with radiculopathy, lumbar region; M99.73 Connective tissue and disc stenosis of intervertebral foramina of lumbar region
CPT/HCPCS: 72110

== ENCOUNTER → 2024-02-21 | Outpatient (CLI) | payer OTHER ==
--- NOTE | 2024-02-26 08:41 | MR ---
EXAMINATION TYPE: MR lumbar spine wo con DATE OF EXAM: 02/21/2024 4:00 PM CLINICAL INDICATION:Male, 58 years old with history of M51.16 INTERVERTEBRAL DISC DISORDERS W RADICUL OPAT, Low back pain that radiates down left leg. COMPARISON: None TECHNIQUE: Multi planar, multi sequence imaging was performed utilizing: T1-weighted, T2-weighted, a nd turbo inversion recovery imaging of the lumbar spine. IV Contrast: (None if empty) FINDINGS: Alignment: The lumbar vertebral bodies have preserved heights and alignment. Cord: The conus medullaris and the distal spinal cord appear unremarkable with regards to their signa l intensity and morphology. Bones/Discs: Multilevel disc degeneration changes with osteophyte formation, disc space narrowing, Sc hmorl's nodes, and facet joint arthropathy. No abnormal inversion recovery edema at the posterior adj oining endplates of L4-L5. Multilevel disc desiccation is present. T12-L1: No evidence of significant spinal canal stenosis or neural foraminal stenosis. L1-L2: No evidence of significant spinal canal stenosis or neural foraminal stenosis. L2-L3: Disc bulge and facet joint arthropathy result in mild spinal canal and moderate bilateral neur al foraminal stenosis. L3-L4: Disc bulge and facet joint arthropathy result in moderate to severe spinal canal and mild bila teral neural foraminal stenosis. L4-L5: Disc bulge with moderate spinal canal stenosis. Low T1 and low T2 signal lesion just superior to the disc space at the level L4 on the right. May represent ossified meningioma versus other etiolo gy. This mildly displaces the right nerve roots severe left and moderate right neural foraminal steno sis. L5-S1: The disc has a rounded posterior morphology without significant spinal canal stenosis. Facet j oint arthropathy with moderate right and moderate to severe left neural foraminal stenosis. No significant spinal canal or neural foraminal stenosis in the remainder of the visualized levels. Other findings: None. IMPRESSION: 1. L3-L4 moderate to severe spinal canal stenosis. 2. L4-L5 moderate spinal canal stenosis. 3. Lesion which is low T1 and low T2 signal near the right neural foramen of L4-L5 which displaces t he right nerve roots. This could represent a meningioma. Consider IV contrast lumbar spine additional imaging. 4. Moderate to severe disc degeneration changes throughout the lumbar spine with neural foraminal st enosis worse at L4-L5 and L5-S1 with moderate to severe left neural foraminal stenosis. Additional mo derate neural foraminal stenosis bilaterally at L2-L3 and L3-L4.
== END | disposition home or self-care (01) ==
LOC: RADMRIMAIN 14:53
PROVIDERS: ATTEND Family Medicine
DX: M51.16 Intervertebral disc disorders with radiculopathy, lumbar region (principal); M47.26 Other spondylosis with radiculopathy, lumbar region; M48.061 Spinal stenosis, lumbar region without neurogenic claudication; M99.73 Connective tissue and disc stenosis of intervertebral foramina of lumbar region
CPT/HCPCS: 72148

== ENCOUNTER → 2024-11-10 | Outpatient (CLI) | payer OTHER ==
--- NOTE | 2024-11-10 13:41 | XR ---
EXAMINATION TYPE: XR cervical spine comp DATE OF EXAM: 11/10/2024 1:37 PM INDICATION: Patient age:Male; 59 years old; Reason for study: [id number] CERVICALGIA; [facility], pain COMPARISON: None TECHNIQUE: The cervical spine was imaged in 5 projections. Frontal, lateral, swimmer's, odontoid and bilateral oblique. FINDINGS: The osseous structures show normal alignment without evidence of an acute fracture. There are osteoph ytes noted throughout the cervical spine on the anterior and lateral aspects of the vertebral bodies. The intervertebral disk spaces are preserved. Pedicles are intact. Soft tissues are within normal limits. The odontoid appears intact. IMPRESSION: 1. No fracture or dislocation. 2. Mild degenerative disc disease changes of the cervical spine. [facility], , 11/10/2024 1:39 PM
== END | disposition home or self-care (01) ==
LOC: RADXRYALE 13:23
PROVIDERS: ATTEND Physician Assistant
DX: M50.30 Other cervical disc degeneration, unspecified cervical region (principal)
CPT/HCPCS: 72050